=== PATIENT | female | born 1995 | race Two or more races ===

== ENCOUNTER 2020-07-17 22:45 | Emergency (ER) | payer OTHER ==
[~2020-07-17] VITALS: Ht 152.4 cm; Wt 64.4 kg
== END 2020-07-18 02:39 ==
LOC: ER 22:45
DX: O26.892 Other specified pregnancy related conditions, second trimester (principal); Z04.3 Encounter for examination and observation following other accident; W50.0XXA Accidental hit or strike by another person, initial encounter; Y93.89 Activity, other specified; Y92.098 Other place in other non-institutional residence as the place of occurrence of the external cause; Y99.8 Other external cause status